=== PATIENT | male | born 1960 ===

== ENCOUNTER 2022-02-27 09:59 | Outpatient (CLI) | payer OTHER, SELFPAY ==
[2022-02-27 18:25] LABS: Alanine Aminotransferase 25 U/L (6-50); Albumin Level 3.7 g/dL (3.5-5.1); Alkaline Phosphatase 78 U/L (38-126); Anion Gap 6 mmol/L (8-16); Aspartate Amino Transferase 21 U/L (17-59); Bilirubin,Total 0.9 mg/dL (0.2-1.3); Blood Urea Nitrogen 14 mg/dL (9-20); Calcium 8.7 mg/dL (8.4-10.2); Carbon Dioxide 26 mmol/L (22-30); Chloride 107 mmol/L (98-107); Cholesterol 163 mg/dL (0-200); Estimated Glomerular Filt Rate > 60; Glucose 100 mg/dL (65-110); HDL Direct 36 mg/dL; Hematocrit 48.5 % (42.0-52.0); Hemoglobin 15.9 g/dL (14.0-18.0); Mean Corpuscular HGB Conc 32.8 g/dl (32-36); Mean Corpuscular Hemoglobin 30.3 pg (26-34); Mean Corpuscular Volume 92.6 fl (80-100); Mean Platelet Volume 10.8 fl (7.4-10.4); Platelet Count Result 248 k/mm3 (150-375); Potassium 4.3 mmol/L (3.4-5.0); Red Blood Count 5.24 M/mm3 (4.6-6.20); Red Cell Distribution Width 13.4 % (11.5-14.5); Sodium 139 mmol/L (137-145); Triglycerides 213 mg/dL (<150); White Blood Count 7.9 K/mm3 (4.5-10.0)
[2022-02-27 18:36] LABS: LDL Cholesterol Direct 91 mg/dL
[2022-02-27 18:42] LABS: Vitamin D 25 Hydroxy 39.9 ng/mL
[2022-02-27 18:55] LABS: Prostate Specific Antigen 4.1 ng/mL (< OR = 4.0)
== END 2022-02-27 10:00 | disposition home or self-care (01) ==
LOC: ANHBWCLAB 10:01
PROVIDERS: PCP Family Medicine; Visit Provider Family Medicine
DX: J45.909 Unspecified asthma, uncomplicated (principal); E55.9 Vitamin D deficiency, unspecified; Z00.00 Encounter for general adult medical examination without abnormal findings
CPT/HCPCS: 36415; 80053; 80061; 82306; 84153; 85027; G0103